=== PATIENT | male | born 1960 | race Caucasian/White ===

== ENCOUNTER 2024-11-17 20:49 | Emergency (ER) | payer MEDICARE ==
[~2024-11-17] VITALS: Wt 64.4 kg
[2024-11-17] MEDS ORDERED: methylPREDNISolone Sod Succ 125 MG/2 ML VIAL IV ONE (21:15)
[2024-11-17 21:29] LABS: HEMATOCRIT 49.6 % (42.0-52.0); HEMOGLOBIN 16.9 g/dL (13.5-18.0); MEAN CELL VOLUME 89 fl (78-100); MEAN CORPUSCULAR HEMOGLOBIN 30 pg (27-31); MEAN CORPUSCULAR HGB CONC 34 g/dL (33-37); MEAN PLATELET VOLUME 12.2 fl (7.4-10.4); PLATELET COUNT 299 K/mm3 (130-400); RED CELL DISTRIBUTION WIDTH 13.9 % (11.5-14.5); WHITE BLOOD COUNT 16.1 K/mm3 (4.8-10.8)
[2024-11-17] MEDS ORDERED: cefTRIAXone 1 G in Water For Injection,Sterile 10 ML IV ONE (21:30)
[2024-11-17] MEDS ORDERED: Doxycycline Hyclate 100 MG in NS 250 ML IV ONE (21:30)
[2024-11-17] MEDS ORDERED: NS 1,000 ML IV SCH (21:30)
[2024-11-17 21:34] LABS: ALBUMIN 3.2 g/dL (3.4-4.8)
[2024-11-17 21:35] LABS: CALCIUM 9.7 mg/dL (8.3-10.5)
[2024-11-17 21:37] LABS: TOTAL PROTEIN 7.4 g/dL (6.2-8.1)
[2024-11-17 21:38] LABS: TOTAL BILIRUBIN 1.5 mg/dL (0.2-1.2)
[2024-11-17] MEDS ORDERED: Albuterol/Ipratropium 3 MG-0.5 MG/3 ML Neb Soln IH ONE (21:45)
[2024-11-17] MEDS ORDERED: Oseltamivir 75 MG CAP PO ONE (22:45)
[2024-11-17 22:53] LABS: BAND 24 % (0-10); D-DIMER 4.57 mg/L FEU (0.15-0.50); LYMPHOCYTE 6 % (20-51); MONOCYTE 6 % (3-10); NEUTROPHILS 64 % (42-75)
[2024-11-17] MEDS ORDERED: Iodixanol-320 100 ML BOTTLE IV ONE (23:04)
[2024-11-17] MEDS ORDERED: NS 100 ML IV SCH (23:05)
[2024-11-18 01:40] VITALS: BP 119/70
== END 2024-11-18 01:40 | disposition short-term general hospital (02) ==
LOC: ED 20:49
PROVIDERS: Physician Assistant
DX: A41.89 Other specified sepsis (principal); J10.00 Influenza due to other identified influenza virus with unspecified type of pneumonia; N17.9 Acute kidney failure, unspecified; R09.02 Hypoxemia
CPT/HCPCS: J0696; J2919; J7030; J7050; Q9967